=== PATIENT | male | born 1980 | race Caucasian/White ===

== ENCOUNTER 2022-01-27 02:02 | Observation (INO) | payer OTHER, SELFPAY ==
[2022-01-27 02:25] VITALS: BMI 29.2
[2022-01-27] MEDS ORDERED: Ondansetron ODT 4 MG TAB PO PRN ×2 (02:33→03:46)
[2022-01-27] MEDS ORDERED: Acetaminophen 325 MG TAB PO PRN (02:33)
[2022-01-27] MEDS ORDERED: Ondansetron PF 4 MG/2 ML Vial IVP PRN (02:33)
[2022-01-27] MEDS ORDERED: Acetaminophen 650 MG Suppository PR PRN (02:33)
[2022-01-27] MEDS ORDERED: Lorazepam 1 MG TAB PO PRN (03:46)
[2022-01-27] MEDS ORDERED: Lorazepam 2 MG/ML VIAL IM PRN (03:46)
[2022-01-27] MEDS ORDERED: Electrolyte Replacement Protocol 1 EACH FS PRN (04:00)
[2022-01-27] MEDS: Thiamine HCl 200 MG/2 ML VIAL SLOW IVP SCH (04:18)
[2022-01-27] MEDS: Lorazepam 1 MG TAB PO SCH ×4 (04:19→21:42)
[2022-01-27 05:06] LABS: Bilirubin, Direct 1.9 mg/dL (0.1-0.3); Phosphorus 2.3 mg/dL (2.3-4.7)
[2022-01-27 05:14] LABS: ALT (SGPT) 46 U/L (8-55); AST (SGOT) 105 U/L (5-34); Albumin 3.2 g/dL (3.5-5.0); Alkaline Phosphatase 154 U/L (40-110); Anion Gap 11 mmol/L (10-20); BUN (Urea Nitrogen) 10 mg/dL (8.9-20.6); Bilirubin, Total 5.4 mg/dL (0.2-1.2); Calc. Creatinine Clearance 107 mL/min (70-130); Carbon Dioxide 22 mmol/L (22-29); Chloride 114 mmol/L (98-107); Globulin 3.2 g/dL (2.4-3.5); Glucose 124 mg/dL (70-105); Potassium 3.7 mmol/L (3.5-5.1); Protein, Total 6.4 g/dL (6.0-8.3); Sodium 143 mmol/L (136-145)
[2022-01-27] MEDS ORDERED: Magnesium 2 GM/50 ML(in water) 2 GM in Premix Bag 1 BAG IVPB SCH (05:45)
[2022-01-27 05:47] LABS: #Eosinphils 0.1 thou/uL (0.0-0.7); #Lymphocytes 2.5 thou/uL (1.20-3.40); #Monocytes 0.6 thou/uL (0.11-0.59); #Neutrophils 2.5 thou/uL (1.40-6.50); %Basophils 0.8 % (0.0-1.0); %Eosinophils 2.1 % (0.0-10.0); %Lymphocytes 42.9 % (21.0-51.0); %Monocytes 10.6 % (0.0-10.0); %Neutrophils 43.7 % (42.0-75.0); Hemoglobin 9.9 g/dL (14.0-18.0); Mean Corpuscular HGB CONC 34.7 g/dL (32.0-36.0); Mean Corpuscular Hemoglobin 35.7 pg (27.0-31.0); Mean Platelet Volume 8.1 fL (7.4-10.4); Platelet Count 60 thou/uL (130-400); Platelet Morphology Comment Appears Decreased; RBC Distribution Width 14.1 % (11.5-14.5); Red Blood Cell (RBC) Count 2.77 mill/uL (4.70-6.10); White Blood Cell (WBC) Count 5.7 thou/uL (4.8-10.8)
[2022-01-27] MEDS ORDERED: Prevnar 13-Val Conj/PF 0.5 ML SYRINGE IM ONE (09:00)
[2022-01-27] MEDS: Sodium Chloride 0.9% 1,000 ML IV SCH ×2 (09:28→21:42)
[2022-01-27] MEDS: Enoxaparin Sodium 40 MG/0.4 ML SYRINGE SC SCH (09:28)
[2022-01-27] MEDS: Gabapentin 100 MG CAP PO SCH ×3 (09:29→20:26)
[2022-01-27] MEDS: busPIRone HCl 5 MG TAB PO SCH ×3 (09:29→20:29)
[2022-01-27] MEDS: Multivit, Therapeutic 1 TAB PO SCH (09:29)
[2022-01-27] MEDS: Propranolol 10 MG TAB PO SCH ×3 (09:29→20:29)
[2022-01-27] MEDS: Rifaximin 550 MG TAB PO SCH ×3 (09:29→20:28)
[2022-01-27] MEDS: Folic Acid 1 MG TAB PO SCH (09:31)
[2022-01-27 12:36] LABS: SARS-CoV-2 PCR by NAA Not Detected (NotDetected)
[2022-01-27] MEDS ORDERED: PARoxetine 20 MG TAB PO SCH (21:00)
[2022-01-28] MEDS: Lorazepam 1 MG TAB PO SCH ×2 (03:22→10:27)
[2022-01-28] MEDS: Thiamine HCl 200 MG/2 ML VIAL SLOW IVP SCH (03:22)
[2022-01-28] MEDS ORDERED: Lorazepam 1 MG TAB PO PRN (03:46)
[2022-01-28 04:05] LABS: #Eosinphils 0.2 thou/uL (0.0-0.7); #Lymphocytes 1.6 thou/uL (1.20-3.40); #Monocytes 0.5 thou/uL (0.11-0.59); #Neutrophils 2.3 thou/uL (1.40-6.50); %Basophils 0.9 % (0.0-1.0); %Eosinophils 3.4 % (0.0-10.0); %Lymphocytes 34.4 % (21.0-51.0); %Monocytes 11.3 % (0.0-10.0); Hemoglobin 9.9 g/dL (14.0-18.0); Mean Corpuscular HGB CONC 34.5 g/dL (32.0-36.0); Mean Corpuscular Hemoglobin 35.7 pg (27.0-31.0); Mean Platelet Volume 7.5 fL (7.4-10.4); Platelet Count 53 thou/uL (130-400); RBC Distribution Width 13.9 % (11.5-14.5); Red Blood Cell (RBC) Count 2.76 mill/uL (4.70-6.10); White Blood Cell (WBC) Count 4.5 thou/uL (4.8-10.8)
[2022-01-28 04:18] LABS: Anion Gap 10 mmol/L (10-20); BUN (Urea Nitrogen) 12 mg/dL (8.9-20.6); Calc. Creatinine Clearance 116 mL/min (70-130); Calcium 8.3 mg/dL (7.8-10.44); Carbon Dioxide 23 mmol/L (22-29); Chloride 110 mmol/L (98-107); Glucose 129 mg/dL (70-105); Potassium 3.8 mmol/L (3.5-5.1); Sodium 139 mmol/L (136-145)
[2022-01-28] MEDS: Gabapentin 100 MG CAP PO SCH (08:42)
[2022-01-28] MEDS: Propranolol 10 MG TAB PO SCH (08:43)
[2022-01-28] MEDS: Multivit, Therapeutic 1 TAB PO SCH (08:43)
[2022-01-28] MEDS: Folic Acid 1 MG TAB PO SCH (08:43)
[2022-01-28] MEDS: busPIRone HCl 5 MG TAB PO SCH (08:43)
[2022-01-28] MEDS: Enoxaparin Sodium 40 MG/0.4 ML SYRINGE SC SCH (08:43)
[2022-01-28] MEDS: Rifaximin 550 MG TAB PO SCH (08:43)
[2022-01-28] MEDS: Sodium Chloride 0.9% 1,000 ML IV SCH (12:49)
[2022-01-28 14:17] VITALS: BP 149/68; TEMP 98.1
[2022-01-29] MEDS ORDERED: Lorazepam 1 MG TAB PO PRN (03:46)
[2022-01-29] MEDS ORDERED: Lorazepam 0.5 MG TAB PO SCH (04:00)
[2022-01-30] MEDS ORDERED: Lorazepam 0.5 MG TAB PO PRN (03:46)
[2022-01-30] MEDS ORDERED: Thiamine 100 MG TAB PO SCH (09:00)
== END 2022-01-28 14:45 | disposition home or self-care (01) ==
LOC: 2NO 02:08 → INTOOBSV 02:08
PROVIDERS: ADMIT Emergency Medicine; ATTEND Emergency Medicine
DX: K72.00 Acute and subacute hepatic failure without coma (principal); F10.129 Alcohol abuse with intoxication, unspecified; K70.30 Alcoholic cirrhosis of liver without ascites; N17.9 Acute kidney failure, unspecified; G89.29 Other chronic pain; M54.2 Cervicalgia; F17.290 Nicotine dependence, other tobacco product, uncomplicated; M48.061 Spinal stenosis, lumbar region without neurogenic claudication; M51.36 Other intervertebral disc degeneration, lumbar region; M51.27 Other intervertebral disc displacement, lumbosacral region; K80.20 Calculus of gallbladder without cholecystitis without obstruction; Z79.899 Other long term (current) drug therapy; Z20.822 Contact with and (suspected) exposure to COVID-19; V89.2XXA Person injured in unspecified motor-vehicle accident, traffic, initial encounter; Y90.8 Blood alcohol level of 240 mg/100 ml or more
CPT/HCPCS: 36415; 80048; 80053; 82140; 82248; 83735; 84100; 85025; 96374; 96375; 96376; G0378; J3411; J3475; J7050; U0003; U0005